=== PATIENT | male | born 1960 | race Caucasian/White ===

== ENCOUNTER 2024-12-01 16:18 | Emergency (ER) | payer OTHER ==
[2024-12-01] MEDS: Lidocaine 1% with EPINEPHrine 1:100,000 50 ML MDV INFILT ONE (17:17)
[2024-12-01 17:48] VITALS: BP 138/89; PULSE 88
== END 2024-12-01 17:30 | disposition home or self-care (01) ==
LOC: LB.ED 16:18
DX: S81.012A Laceration without foreign body, left knee, initial encounter (principal); I10 Essential (primary) hypertension; K21.9 Gastro-esophageal reflux disease without esophagitis; Z88.8 Allergy status to other drugs, medicaments and biological substances; Z79.899 Other long term (current) drug therapy; W22.8XXA Striking against or struck by other objects, initial encounter
CPT/HCPCS: 12002; 99282; A9270; 99283